=== PATIENT | female | born 1955 | race Caucasian/White ===

== ENCOUNTER 2024-12-25 22:32 | Inpatient (IN) | payer OTHER ==
[~2024-12-25] VITALS: Ht 157.5 cm; Wt 68.0 kg
[2024-12-26] MEDS ORDERED: VANCOMYCIN 1 GM /D5W 250 ML PB IV ONE (00:16)
[2024-12-26] MEDS ORDERED: ONDANSETRON HCL/PF 4 MG/2 ML VIAL ONE (00:16)
[2024-12-26] MEDS ORDERED: HYDROMORPHONE 1 MG/1 ML DISP.SYRIN ONE (00:17)
[2024-12-26 00:23] LABS: PLATELET COUNT (AUTO) 350 K/uL (150-450); RED BLOOD CELL COUNT(AUTO) 3.85 MIL/uL (4.0-5.2); RED CELL DISTRIBUTION WIDTH 14.6 % (11.5-15.0); WHITE BLOOD COUNT (AUTO) 10.8 K/uL (4.3-11.0)
[2024-12-26 00:33] LABS: CALCIUM, SERUM 9.0 mg/dL (8.5-10.1); CREATININE 0.7 mg/dL (0.6-1.3); SODIUM SERUM 142.0 mmol/L (136-145); UREA NITROGEN, BLOOD 16.0 mg/dL (7-18)
[2024-12-26] MEDS: HYDROMORPHONE 1 MG/1 ML DISP.SYRIN IV ONE (00:34)
[2024-12-26] MEDS: ONDANSETRON HCL/PF - ER 4 MG/2 ML VIAL IV ONE (00:35)
[2024-12-26] MEDS: VANCOMYCIN HCL 1.25 GM in IV D5W 260 ML IV ONE (00:35)
[2024-12-26 00:42] LABS: ERYTHROCYTE SEDIMENTATION RATE 23 MM/HR (0-30)
[2024-12-26 01:01] LABS: ASPARTATE AMINOTRANSFERASE 21.0 U/L (15-37); TOTAL PROTEIN, SERUM 8.4 g/dL (6.4-8.2)
[2024-12-26 01:51] LABS: APPEARANCE,URINE CLEAR (CLEAR); BLOOD, URINE TRACE-INTA Ery/uL (NEGATIVE); LEUKOCYTE ESTERASE ,URINE NEGATIVE (NEGATIVE); NITRITE, URINE NEGATIVE (NEGATIVE); UGLUCOSE NEGATIVE (NEGATIVE)
[2024-12-26 01:59] LABS: ADD URINE CULTURE NO; SQUAMOUS EPITHELIAL CELL,UR Few /HPF (None Seen)
[2024-12-26] MEDS ORDERED: DOSING PER PHARMACY-VANCOMYCIN IV XX PRN (02:00)
[2024-12-26] MEDS ORDERED: MAG HYDROX/AL HYDROX/SIMETH 30 ML UDC PO PRN (02:00)
[2024-12-26] MEDS ORDERED: MORPHINE SULFATE INJ 4 MG/ML DISP.SYRIN IV PRN (02:00)
[2024-12-26] MEDS ORDERED: ONDANSETRON HCL/PF 4 MG/2 ML VIAL IVP PRN (02:00)
[2024-12-26] MEDS ORDERED: MAGNESIUM HYDROXIDE 30 ML UDC PO PRN (02:00)
[2024-12-26] MEDS ORDERED: POTASSIUM CHLORIDE 20 MEQ TAB.PRT.SR PO ONE (02:31)
[2024-12-26] MEDS: POTASSIUM CHLORIDE 20 MEQ TAB.PRT.SR PO ONE (02:36)
[2024-12-26 03:29] VITALS: BP 131/82; TEMP 97.5; O2SAT 99
[2024-12-26] MEDS: ENOXAPARIN SODIUM 40 MG/0.4 ML DISP.SYRIN SQ ONE (03:48)
[2024-12-26 06:33] LABS: PLATELET COUNT (AUTO) 262 K/uL (150-450); RED BLOOD CELL COUNT(AUTO) 3.59 MIL/uL (4.0-5.2); RED CELL DISTRIBUTION WIDTH 14.7 % (11.5-15.0); WHITE BLOOD COUNT (AUTO) 7.9 K/uL (4.3-11.0)
[2024-12-26 06:42] LABS: ASPARTATE AMINOTRANSFERASE 53.0 U/L (15-37); CALCIUM, SERUM 8.7 mg/dL (8.5-10.1); CREATININE 1.0 mg/dL (0.6-1.3); PHOSPHORUS 3.5 mg/dL (2.5-4.9); SODIUM SERUM 143.0 mmol/L (136-145); TOTAL PROTEIN, SERUM 7.6 g/dL (6.4-8.2); UREA NITROGEN, BLOOD 14.0 mg/dL (7-18)
[2024-12-26] MEDS: PANTOPRAZOLE 40 MG TABLET.DR PO SCH (07:24)
[2024-12-26] MEDS ORDERED: FLUO10CA29 PO (08:21)
[2024-12-26] MEDS ORDERED: LORA-782 PO (08:21)
[2024-12-26 08:33] VITALS: BP 142/80; TEMP 97.7; O2SAT 96
[2024-12-26] MEDS: POTASSIUM CHLORIDE 20 MEQ TAB.PRT.SR PO SCH (10:42)
[2024-12-26] MEDS: VANCOMYCIN 500 MG in IV D5W 100ml IV SCH (11:14)
[2024-12-26] MEDS ORDERED: HYDROCODONE/APAP 5/325MG TABLET PO PRN (13:00)
[2024-12-26] MEDS ORDERED: MORPHINE SULFATE INJ 2 MG/ML DISP.SYRIN IV PRN (13:00)
[2024-12-26] MEDS: P-EPHED SUL/LORATADINE (24H) 1 TAB.SR.24H PO SCH (14:04)
[2024-12-26 16:02] VITALS: BP 140/76; TEMP 97.9; O2SAT 98
[2024-12-26] MEDS: CEFTRIAXONE 1 G in IV D5W 50 ML IV SCH (16:55)
[2024-12-26] MEDS: ENOXAPARIN SODIUM 40 MG/0.4 ML DISP.SYRIN SQ SCH (20:23)
[2024-12-27 06:38] LABS: PLATELET COUNT (AUTO) 315 K/uL (150-450); RED BLOOD CELL COUNT(AUTO) 3.62 MIL/uL (4.0-5.2); RED CELL DISTRIBUTION WIDTH 14.4 % (11.5-15.0); WHITE BLOOD COUNT (AUTO) 5.8 K/uL (4.3-11.0)
[2024-12-27 06:54] LABS: CALCIUM, SERUM 8.7 mg/dL (8.5-10.1); CREATININE 0.8 mg/dL (0.6-1.3); PHOSPHORUS 3.0 mg/dL (2.5-4.9); SODIUM SERUM 141.0 mmol/L (136-145); UREA NITROGEN, BLOOD 10.0 mg/dL (7-18)
[2024-12-27 07:30] VITALS: BP 147/78; TEMP 98.6; O2SAT 99
[2024-12-27 15:08] LABS: HIV-1/2 ANTIBODY NON REACTIVE (NONREACTIVE)
[2024-12-27 16:00] VITALS: BP 143/90; TEMP 98.1; O2SAT 100
[2024-12-27] MEDS: ACETAMINOPHEN 325 MG TABLET PO PRN (17:04)
[2024-12-27 20:00] VITALS: BP 136/70; TEMP 97.9; O2SAT 100
[2024-12-27 20:14] VITALS: BP 136/78; TEMP 97.9; O2SAT 100
[2024-12-27] MEDS: VANCOMYCIN 750 MG in IV D5W 250 ML IV SCH (23:48)
[2024-12-28 07:25] LABS: CALCIUM, SERUM 9.2 mg/dL (8.5-10.1); CREATININE 0.9 mg/dL (0.6-1.3); SODIUM SERUM 142.0 mmol/L (136-145); UREA NITROGEN, BLOOD 9.0 mg/dL (7-18)
[2024-12-28] MEDS ORDERED: AMOX-430 PO (07:47)
[2024-12-28 08:00] VITALS: BP 133/85; TEMP 97.9; O2SAT 99
== END 2024-12-28 10:37 | disposition home health service (06) | DRG 560 ==
LOC: ER 22:53 → MED 12-26 02:27
PROVIDERS: ADMIT Nurse Practitioner Acute Care; ATTEND Internal Medicine
DX: T84.54XA Infection and inflammatory reaction due to internal left knee prosthesis, initial encounter (principal); L03.116 Cellulitis of left lower limb; S72.492A Other fracture of lower end of left femur, initial encounter for closed fracture; F32.A Depression, unspecified; Z88.2 Allergy status to sulfonamides; Y83.1 Surgical operation with implant of artificial internal device as the cause of abnormal reaction of the patient, or of later complication, without mention of misadventure at the time of the procedure; Y92.009 Unspecified place in unspecified non-institutional (private) residence as the place of occurrence of the external cause; M19.90 Unspecified osteoarthritis, unspecified site; Z79.899 Other long term (current) drug therapy; M25.462 Effusion, left knee; E66.9 Obesity, unspecified; Z68.27 Body mass index [BMI] 27.0-27.9, adult; Z96.651 Presence of right artificial knee joint; X58.XXXA Exposure to other specified factors, initial encounter; Y92.9 Unspecified place or not applicable
CPT/HCPCS: 36415; 73560-TC; 73700-TC; 80048-TC; 80053-TC; 80076-TC; 80202-TC; 81001; 83735-TC; 84100-TC; 85025-TC; 85652-TC; 86140-TC; 86803; 87040-TC; 87806; 97112-TC; 97116-TC; 97530-TC; 97535-TC; A4223; G0378; J0696; J1171; J1650; J2405; J3373; J3374; J7060

== ENCOUNTER 2025-01-13 15:18 | Inpatient (IN) | payer OTHER ==
[~2025-01-13] VITALS: Ht 157.5 cm; Wt 65.5 kg
[~2025-01-13 15:18] MED LIST: AMOX-430 PO; FLUO10CA29 PO; LORA-782 PO
[2025-01-13 17:51] LABS: PLATELET COUNT (AUTO) 334 K/uL (150-450); RED BLOOD CELL COUNT(AUTO) 3.89 MIL/uL (4.0-5.2); RED CELL DISTRIBUTION WIDTH 16.1 % (11.5-15.0); WHITE BLOOD COUNT (AUTO) 10.3 K/uL (4.3-11.0)
[2025-01-13 17:59] LABS: CALCIUM, SERUM 9.2 mg/dL (8.5-10.1); CREATININE 0.9 mg/dL (0.6-1.3); SODIUM SERUM 137.0 mmol/L (136-145); UREA NITROGEN, BLOOD 19.0 mg/dL (7-18)
[2025-01-13 18:09] LABS: LACTIC ACID 0.6 mmol/L (0.4-2.0)
[2025-01-13] MEDS ORDERED: IOHEXOL-300 100 ML VIAL IV ONE (18:31)
[2025-01-13] MEDS ORDERED: IV NS 0.9% 250 ML IV ONE (18:31)
[2025-01-13 22:00] VITALS: BP 157/77; TEMP 98.1; O2SAT 98
[2025-01-13] MEDS ORDERED: HYDROCODONE/APAP 10/325MG TABLET PO PRN (23:00)
[2025-01-13] MEDS ORDERED: TEMAZEPAM 15 MG CAPSULE PO PRN (23:00)
[2025-01-13] MEDS ORDERED: DOSING PER PHARMACY-VANCOMYCIN IV XX PRN (23:00)
[2025-01-13] MEDS ORDERED: MAGNESIUM HYDROXIDE 30 ML UDC PO PRN (23:00)
[2025-01-13] MEDS ORDERED: MAG HYDROX/AL HYDROX/SIMETH 30 ML UDC PO PRN (23:00)
[2025-01-13] MEDS ORDERED: ONDANSETRON HCL/PF 4 MG/2 ML VIAL IVP PRN (23:00)
[2025-01-13 23:52] VITALS: BP 154/74; TEMP 98.1; O2SAT 98
[2025-01-14] MEDS: ENOXAPARIN SODIUM 40 MG/0.4 ML DISP.SYRIN SQ SCH (00:23)
[2025-01-14] MEDS ORDERED: VANCOMYCIN 1 GM /D5W 250 ML PB IV ONE (00:31)
[2025-01-14] MEDS: HYDROCODONE/APAP 5/325MG TABLET PO PRN (00:35)
[2025-01-14] MEDS: VANCOMYCIN HCL 1.25 GM in IV D5W 250 ML IV ONE (00:37)
[2025-01-14] MEDS ORDERED: VANCOMYCIN 500 MG VIAL ONE (01:51)
[2025-01-14] MEDS ORDERED: CEFEPIME 1 GM VIAL ONE (05:33)
[2025-01-14] MEDS: CEFEPIME 2 GM in IV D5W 100 ML IV SCH (05:57)
[2025-01-14 07:05] LABS: PLATELET COUNT (AUTO) 257 K/uL (150-450); RED BLOOD CELL COUNT(AUTO) 3.65 MIL/uL (4.0-5.2); RED CELL DISTRIBUTION WIDTH 16.2 % (11.5-15.0); WHITE BLOOD COUNT (AUTO) 7.8 K/uL (4.3-11.0)
[2025-01-14] MEDS: PANTOPRAZOLE 40 MG TABLET.DR PO SCH (07:43)
[2025-01-14 07:58] VITALS: BP 129/69; TEMP 98.3; O2SAT 98
[2025-01-14 08:00] VITALS: BP_SYST 129; BP_SYST 138; BP_DIAS 69; BP_DIAS 84; TEMP 98.2; TEMP 98.3; O2SAT 98; O2SAT 99
[2025-01-14 08:15] LABS: CALCIUM, SERUM 8.9 mg/dL (8.5-10.1); CREATININE 0.9 mg/dL (0.6-1.3); PHOSPHORUS 3.1 mg/dL (2.5-4.9); SODIUM SERUM 139.0 mmol/L (136-145); UREA NITROGEN, BLOOD 11.0 mg/dL (7-18)
[2025-01-14] MEDS: ACETAMINOPHEN 325 MG TABLET PO PRN (08:39)
[2025-01-14] MEDS: POTASSIUM CHLORIDE 20 MEQ TAB.PRT.SR PO SCH (12:07)
[2025-01-14] MEDS: VANCOMYCIN 750 MG in IV D5W 250 ML IV SCH (12:10)
[2025-01-14 16:00] VITALS: BP 149/77; TEMP 98.1; O2SAT 99
[2025-01-14 16:35] VITALS: BP 149/77; TEMP 98.1; O2SAT 99
[2025-01-14 20:00] VITALS: BP 138/84; TEMP 98.2; O2SAT 99
[2025-01-15 07:00] VITALS: BP 131/74; TEMP 98.1; O2SAT 98
[2025-01-15 07:42] LABS: PLATELET COUNT (AUTO) 260 K/uL (150-450); RED BLOOD CELL COUNT(AUTO) 3.85 MIL/uL (4.0-5.2); RED CELL DISTRIBUTION WIDTH 16.1 % (11.5-15.0); WHITE BLOOD COUNT (AUTO) 6.2 K/uL (4.3-11.0)
[2025-01-15 07:51] LABS: CALCIUM, SERUM 8.9 mg/dL (8.5-10.1); CREATININE 0.9 mg/dL (0.6-1.3); SODIUM SERUM 140.0 mmol/L (136-145); UREA NITROGEN, BLOOD 10.0 mg/dL (7-18)
[2025-01-15 09:02] VITALS: BP 131/74; TEMP 98.1; O2SAT 98
[2025-01-15 16:00] VITALS: BP 140/83; TEMP 97.9; O2SAT 100
[2025-01-15 16:58] VITALS: BP 140/83; TEMP 97.9; O2SAT 100
[2025-01-15 20:00] VITALS: BP 145/86; TEMP 98.1; O2SAT 99
[2025-01-15 21:37] VITALS: BP 145/86; TEMP 98.1; O2SAT 99
[2025-01-16 08:05] LABS: CALCIUM, SERUM 9.0 mg/dL (8.5-10.1); CREATININE 0.9 mg/dL (0.6-1.3); SODIUM SERUM 141.0 mmol/L (136-145); UREA NITROGEN, BLOOD 11.0 mg/dL (7-18)
[2025-01-16 08:07] LABS: PLATELET COUNT (AUTO) 257 K/uL (150-450); RED BLOOD CELL COUNT(AUTO) 3.88 MIL/uL (4.0-5.2); RED CELL DISTRIBUTION WIDTH 16.0 % (11.5-15.0); WHITE BLOOD COUNT (AUTO) 5.5 K/uL (4.3-11.0)
[2025-01-16 08:43] VITALS: BP 148/94; TEMP 97.7; O2SAT 95
[2025-01-16 16:07] VITALS: BP 137/89; TEMP 97.9; O2SAT 97
[2025-01-16 20:00] VITALS: BP 108/65; TEMP 98.1; O2SAT 98
[2025-01-17 06:26] LABS: CALCIUM, SERUM 9.4 mg/dL (8.5-10.1); CREATININE 1.0 mg/dL (0.6-1.3); SODIUM SERUM 140.0 mmol/L (136-145); UREA NITROGEN, BLOOD 13.0 mg/dL (7-18)
[2025-01-17 08:00] VITALS: BP 127/64; TEMP 97.9; O2SAT 95
[2025-01-17 16:00] VITALS: BP 132/79; TEMP 98; O2SAT 99
[2025-01-17] MEDS: CEFEPIME 2 GM in IV D5W 100 ML IV SCH (16:41)
[2025-01-17 20:00] VITALS: BP 120/72; TEMP 98.1; O2SAT 98
[2025-01-18 07:26] LABS: CALCIUM, SERUM 8.8 mg/dL (8.5-10.1); CREATININE 0.8 mg/dL (0.6-1.3); SODIUM SERUM 141.0 mmol/L (136-145); UREA NITROGEN, BLOOD 12.0 mg/dL (7-18)
[2025-01-18 07:30] VITALS: BP 122/72; TEMP 98.1; O2SAT 100
== END 2025-01-18 20:00 | DRG 560 ==
LOC: ER 15:21 → MED 22:55
PROVIDERS: ADMIT Registered Nurse Psychiatric/Mental Health; ATTEND Nurse Practitioner Acute Care
PROC: 02HV33Z Insertion of Infusion Device into Superior Vena Cava, Percutaneous Approach (ICD-10-PCS; principal; 2025-01-18)
DX: T84.54XA Infection and inflammatory reaction due to internal left knee prosthesis, initial encounter (principal); L02.416 Cutaneous abscess of left lower limb; M86.8X6 Other osteomyelitis, lower leg; S72.492A Other fracture of lower end of left femur, initial encounter for closed fracture; Y83.1 Surgical operation with implant of artificial internal device as the cause of abnormal reaction of the patient, or of later complication, without mention of misadventure at the time of the procedure; F32.A Depression, unspecified; Z88.2 Allergy status to sulfonamides; Y92.009 Unspecified place in unspecified non-institutional (private) residence as the place of occurrence of the external cause
CPT/HCPCS: 36415; 71045-TC; 73562; 73701-TC; 80048-TC; 80202-TC; 83605-TC; 83735-TC; 84100-TC; 85025-TC; 85652-TC; 86140-TC; 87040-TC; 87081-TC; 93971-TC; 97110-TC; 97116-TC; 97530-TC; A4223; G0378; J0692; J1650; J3373; J3374; J7030; J7050; J7060; Q9967

== ENCOUNTER 2025-03-06 22:50 | Emergency (ER) | payer OTHER ==
[~2025-03-06] VITALS: Ht 157.5 cm; Wt 54.4 kg
[~2025-03-06 22:50] MED LIST changes: -AMOX-430 PO
[2025-03-07 03:23] VITALS: BP 125/70; TEMP 98; O2SAT 100
== END 2025-03-07 03:24 | disposition home or self-care (01) ==
LOC: ER 22:53
DX: S80.02XA Contusion of left knee, initial encounter (principal); I10 Essential (primary) hypertension; Z79.899 Other long term (current) drug therapy; Z88.2 Allergy status to sulfonamides; Z96.652 Presence of left artificial knee joint
CPT/HCPCS: 73700-TC